=== PATIENT | male | born 1955 | race Caucasian/White ===

== ENCOUNTER 2017-05-01 15:32 | Observation (INO) | payer OTHER ==
[2017-05-01] VITALS (10 sets, daily range): BP systolic 103–165; BP diastolic 72–95; PULSE 63–85; RESP 18–20; TEMP 98.3–99.2; O2SAT 94–97
[~2017-05-01] VITALS: Ht 193 cm; Wt 104.0 kg
[~2017-05-01 15:32] MED LIST: ATOR10TA PO; CLOP75 PO; ECOT81TA2 PO; FLUO20TA20 PO; HCTZ25 PO; NIFE1TAB85 PO
[2017-05-01] MEDS ORDERED: FLUO20CA12 PO (15:49)
[2017-05-01] MEDS ORDERED: CLOP75TA PO (15:49)
[2017-05-01] MEDS ORDERED: ATOR10TA15 PO (15:49)
[2017-05-01] MEDS ORDERED: NIFE10CA PO (15:49)
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
[2017-05-01 15:59] LABS: AUTOMATED NEUTROPHIL # 4.1 TH/MM3 (1.8-7.7); BASOPHIL # 0.1 TH/MM3 (0-0.2); BASOPHIL % 0.8 % (0.0-2.0); EOSINOPHIL # 0.3 TH/MM3 (0-0.4); EOSINOPHIL % 4.3 % (0.0-4.0); HEMATOCRIT 48.3 % (39.0-51.0); HEMO FLAGS DIFF FINAL; LYMPHOCYTE # 2.1 TH/MM3 (1.0-4.8); MEAN CORPUSCULAR HEMOGLOBIN 30.3 PG (27.0-34.0); MEAN CORPUSCULAR HGB CONC 33.6 % (32.0-36.0); MONO % 10.3 % (0.0-8.0); NEUT % 56.6 % (16.0-70.0); PLATELET COUNT 224 TH/MM3 (150-450); RED BLOOD COUNT 5.37 MIL/MM3 (4.50-5.90); RED CELL DISTRIBUTION WIDTH 11.6 % (11.6-17.2); WHITE BLOOD COUNT 7.4 TH/MM3 (4.0-11.0)
[2017-05-01] MEDS ORDERED: NITROGLYCERIN 0.4 MG SL 25 TABS/BTL SL ONE (16:00)
[2017-05-01] MEDS ORDERED: SODIUM CHLORIDE 0.9% FLUSH 10 ML FLUSH IVF PRN (16:00)
[2017-05-01] MEDS ORDERED: ASPIRIN 81 MG CHEW TAB PO ONE (16:00)
[2017-05-01 16:09] LABS: CHLORIDE 105 MEQ/L (98-107); SODIUM (NA) 139 MEQ/L (136-145)
[2017-05-01 16:12] LABS: ANION GAP 8 MEQ/L (5-15); BICARBONATE 26.2 MEQ/L (21.0-32.0)
[2017-05-01 16:13] LABS: BLOOD UREA NITROGEN 17 MG/DL (7-18); MAGNESIUM 2.1 MG/DL (1.5-2.5)
[2017-05-01 16:15] LABS: ALT (GPT) 58 U/L (12-78); APTT (PATIENT) 26.3 SEC (24.3-30.1); AST (GOT) 50 U/L (15-37); PROTHROMBIN TIME - PATIENT 10.8 SEC (9.8-11.6)
[2017-05-01 16:16] LABS: GLOMERULAR FILTRATION RATE 68 ML/MIN (>89)
[2017-05-01 16:17] LABS: TOTAL BILIRUBIN ADULT 0.8 MG/DL (0.2-1.0)
[2017-05-01 16:18] LABS: ALKALINE PHOSPHATASE 117 U/L (45-117); CREATINE KINASE 191 U/L (39-308)
[2017-05-01] MEDS ORDERED: POTASSIUM CHLORIDE 20 MEQ CONTROLLED RELEASE TAB PO ONE (16:30)
[2017-05-01] MEDS ORDERED: LIDOCAINE VISCOUS 2% SOLN 15 ML UDC PO ONE (16:30)
[2017-05-01] MEDS ORDERED: ALUMINUM/MAGNESIUM/SIMETH 30 ML CUP PO ONE (16:30)
[2017-05-01 16:31] LABS: CKMB 1.7 NG/ML (0.5-3.6)
--- NOTE | 2017-05-01 16:39 | RADRPT ---
EXAM DATE/TIME: 05/01/2017 16:01 [facility] COMPARISON: No previous studies available for comparison. INDICATIONS : Chest pain and shortness of breath, with history of heart catheterization. MEDICAL HISTORY : None. SURGICAL HISTORY : cardiac cath ENCOUNTER: Initial ACUITY: 1 day PAIN SCORE: 10/10 LOCATION: Bilateral upper chest FINDINGS: Underinflated AP view of the chest demonstrates a normal-sized cardiac silhouette with tortuous desce nding thoracic aorta. No effusion, consolidation, or pneumothorax is visualized. The bones and soft t issues demonstrate no acute finding. CONCLUSION: No acute cardiopulmonary abnormality is identified. Nate Small MD on May 01, 2017 at 16:37 Board Certified Radiologist. This report was verified electronically.
[2017-05-01] MEDS ORDERED: IOHEXOL 350 MG/ML 10 ML VIAL (for RAD DIAG) IV ONE (16:49)
--- NOTE | 2017-05-01 17:08 | RADRPT ---
EXAM DATE/TIME: 05/01/2017 16:21 [facility] COMPARISON: No previous studies available for comparison. INDICATIONS : Chest pain. Epigastric pain with nausea, vomiting and diarrhea. Evaluate for aortic dissection. IV CONTRAST: 90 cc Omnipaque 350 (iohexol) IV RADIATION DOSE: 22.32 CTDIvol (mGy) MEDICAL HISTORY : Gastroesophageal reflux disease. Cerebrovascular disease. Myocardial infarction.Hypertension. Renal calculi. SURGICAL HISTORY : None. ENCOUNTER: Initial ACUITY: 4 - 6 days PAIN SCALE: 7/10 LOCATION: chest TECHNIQUE: Volumetric scanning was performed using a multi-row detector CT scanner. The data was post processed with a variety of visualization algorithms including full volume maximum intensity projection, multi -planar sliding thin slab reformation, curved planar reformation, and surface rendering techniques. Using automated exposure control and adjustment of the mA and/or kV according to patient size, radiat ion dose was kept as low as reasonably achievable to obtain optimal diagnostic quality images. DICOM format image data is available electronically for review and comparison. FINDINGS: LUNGS: Minimal bibasilar groundglass opacities likely reflect atelectasis. MEDIASTINUM: No abnormally enlarged lymph nodes by CT criteria. No axillary or hilar abnormalities are identified. Heart appears unremarkable without significant pericardial effusion. ABDOMEN: Small subcentimeter hypodense lesions near the dome of the liver are too small to fully characterize. 2.9 x 3.0 cm cyst in inferior right lobe of the liver. Spleen is unremarkable. The gallbladder and p ancreas demonstrate no abnormality. The adrenal glands are normal. There is a small subcentimeter cys tic lesion in the medial mid right kidney which is too small to fully characterize. Kidneys are other castro unremarkable. No free fluid or abdominal masses are identified. No para-aortic adenopathy is see n. PELVIS: No evidence of free fluid or pelvic mass. No abnormally enlarged inguinal or retroperitoneal lymph no justin are present. The bladder is unremarkable. THORACIC AORTA: Mild ectasia of the descending thoracic aorta measuring up to 3.9 cm. Arch is normal in caliber with stent a 3 vessel arch anatomy. Proximal arch vessels are patent. Descending thoracic aorta is normal in caliber. No evidence for thoracic aortic dissection. ABDOMINAL AORTA: Mild ectasia of the distal abdominal aorta just above the aortic bifurcation. Infrarenal aorta measur es 1.9 cm with the relative ectatic segment measuring 2.3 cm. No evidence of aortic dissection. The r enal arteries are patent bilaterally. The proximal celiac and superior mesenteric arteries are paten t and normal in diameter. PELVIC VESSELS: The internal iliac and external iliac vessels are patent without aneurysm or stenosis. CONCLUSION: 1. No evidence for aortic dissection as questioned. Mild ectasia of the ascending thoracic aorta toi uring up to 3.9 cm and mild relative ectasia of the distal bowel aorta near the bifurcation measuring up to 2.3 cm. 2. No definitive findings to explain patient's epigastric abdominal pain. 3. Ancillary findings include 3 cm cyst in the inferior right lobe of the liver with additional subce ntimeter hypodense lesions in the dome of the liver and right kidney that are too small to fully lani acterize. Scott Godwin MD on May 01, 2017 at 16:55 Board Certified Radiologist. This report was verified electronically.
[2017-05-01] MEDS ORDERED: SODIUM CHLORIDE 0.9% FLUSH 10 ML FLUSH IV FLUSH PRN (17:30)
[2017-05-01] MEDS ORDERED: ACETAMINOPHEN 500 MG CPLT PO PRN (18:00)
[2017-05-01] MEDS ORDERED: ONDANSETRON HCL 4 MG/2 ML VIAL IV PRN (18:00)
[2017-05-01] MEDS ORDERED: NITROGLYCERIN 0.4 MG SL 25 TABS/BTL SL PRN (18:00)
[2017-05-01] MEDS ORDERED: MORPHINE SULFATE 4 MG/ML INJ IV PRN (18:00)
[2017-05-01] MEDS ORDERED: ENOXAPARIN SODIUM 40 MG/0.4 ML SYRINGE SQ SCH (18:00)
[2017-05-01 18:43] LABS: CREATINE KINASE 163 U/L (39-308)
--- NOTE | 2017-05-01 18:47 | HHI.HP ---
[facility] Primary Care Physician Maxim Hayes MD Admission Diagnosis chest pain, hypokalemia Diagnoses: (1) Chest pain Diagnosis: Principal (2) Hypokalemia Diagnosis: Principal Chief Complaint: Chest pain Travel History International Travel<30 Days: No Contact w/Intl Traveler <30 Da: No Traveled to Known Affected Are: No History of Present Illness Written by Coy Anthony, acting as scribe for Dr. Jose on 05/01/17 at 18: 38. 61 year-old male with known history of hypertension, hyperlipidemia, history TIA, history of CVA, history myocardial infarction, history of sleep apnea, history of gastroesophageal reflux who presented to the hospital because of chest discomfort. Patient states that he had a stomach flu at the beginning this week with 3 days of nausea, vomiting, diarrhea. Patient states that he improved on Friday of this week. He has had increased acid reflux and heartburn since then. Today he developed nausea with burning sensation in his abdomen that moved up into his chest where he described as a crushing sensation in the middle part of his chest without any radiation to his neck, back, shoulder, arm. He did have nausea without any vomiting. Had an episode of diaphoresis. Had associated dizziness. Denied any shortness of breath or dyspnea. Patient does have previous history of myocardial infarction, however he states that this is not the same type of pain he experienced then. He did come to the hospital because he was worried that he was having cardiac problems. Patient had workup done emergency department and had negative workup thus far. Is recommended by ER physician that the patient be observed in the chest pain center for further recommendations. Review of Systems Constitutional: COMPLAINS OF: Diaphoretic episodes, Dizziness Cardiovascular: COMPLAINS OF: Chest pain Gastrointestinal: COMPLAINS OF: Abdominal pain, Nausea Except as stated in HPI: all other systems reviewed are Neg Past Family Social History Past Medical History Hypertension Hyperlipidemia History myocardial infarction at age 29 History of CVA with residual to include some cognitive recall, speech abnormalities History of sleep apnea Gastroesophageal reflux Past Surgical History Sinus surgery Tonsillectomy Reported Medications Reported Meds & Active Scripts Active Reported Nifedipine 10 Mg Cap 10 Mg PO DAILY Atorvastatin (Atorvastatin Calcium) 10 Mg Tab 10 Mg PO HS Clopidogrel (Clopidogrel Bisulfate) 75 Mg Tab 75 Mg PO DAILY Fluoxetine (Fluoxetine HCl) 20 Mg Capsule 20 Mg PO HS Allergies: Coded Allergies: Erythromycins (Unverified Allergy, Severe, HIVES, STOMACH DISTRESS, ) Family History Reviewed is significant for father from brain tumor. Social History Patient states that he quit smoking at age 13 when his father caught him and he got in trouble. Denies any alcohol or illicit drugs Physical Exam Vital Signs Vital Signs Date Time Temp Pulse Resp B/P Pulse Ox O2 Delivery O2 Flow Rate FiO2 05/01/17 18:17 71 18 150/95 96 Room Air 05/01/17 16:58 78 18 140/83 96 Room Air 05/01/17 15:59 85 103/72 119/82 05/01/17 15:57 96 Room Air 05/01/17 15:57 96 Room Air 05/01/17 15:41 82 97 Room Air 05/01/17 15:35 98.3 82 18 165/92 97 Physical Exam GENERAL: Well-developed, well-nourished, in no acute distress. alert and orientated HEENT: Head is normocephalic without any lesions or masses noted. Facial features are symmetric. Eyes: Pupils equal round reactive to light. Extraocular muscles are intact. Conjunctivae were clear. Oropharyngeal: Pharynx without any erythema edema. Tongue is midline without deviation. Buccal mucosa is moist without any masses or lesions NECK: Trachea midline no deviation. CARDIAC: Regular rhythm, regular rate. No murmurs gallops LUNGS: Clear to auscultation bilaterally. No wheeze, rhonchi or rales. No use of accessory muscles on inspiration or expiration. ABDOMEN: Soft, nontender. Nondistended. Bowel sounds heard in all 4 quadrants. No organomegaly or masses. Negative rebound, negative guarding EXTREMITIES: No edema, pulses are equal bilaterally. No cyanosis or clubbing NEUROLOGY: Mood and affect appear appropriate. Cranial nerves II through XII grossly intact. Muscle strength 5/5 in upper and lower extremities bilaterally. Deep tendon reflexes are 2+ in upper and lower extremities bilaterally. Laboratory Laboratory Tests Test 05/01/17 15:30 White Blood Count 7.4 Red Blood Count 5.37 Hemoglobin 16.3 Hematocrit 48.3 Mean Corpuscular Volume 90.0 Mean Corpuscular Hemoglobin 30.3 Mean Corpuscular Hemoglobin 33.6 Concent Red Cell Distribution Width 11.6 Platelet Count 224 Mean Platelet Volume 9.7 Neutrophils (%) (Auto) 56.6 Lymphocytes (%) (Auto) 28.0 Monocytes (%) (Auto) 10.3 Eosinophils (%) (Auto) 4.3 Basophils (%) (Auto) 0.8 Neutrophils # (Auto) 4.1 Lymphocytes # (Auto) 2.1 Monocytes # (Auto) 0.8 Eosinophils # (Auto) 0.3 Basophils # (Auto) 0.1 CBC Comment DIFF FINAL Differential Comment Prothrombin Time 10.8 Prothromb Time International 1.0 Ratio Activated Partial 26.3 Thromboplast Time Sodium Level 139 Potassium Level 3.0 Chloride Level 105 Carbon Dioxide Level 26.2 Anion Gap 8 Blood Urea Nitrogen 17 Creatinine 1.10 Estimat Glomerular Filtration 68 Rate Random Glucose 97 Calcium Level 8.8 Magnesium Level 2.1 Total Bilirubin 0.8 Aspartate Amino Transf 50 (AST/SGOT) Alanine Aminotransferase 58 (ALT/SGPT) Alkaline Phosphatase 117 Total Creatine Kinase 191 Creatine Kinase MB 1.7 Troponin I LESS THAN 0.02 Total Protein 8.2 Albumin 4.0 Lipase 147 Result Diagram: 05/01/17 1530 05/01/17 1530 Imaging Last Impressions Chest X-Ray 05/01/17 1548 Signed Impressions: Service Date/Time: April 16:01 - CONCLUSION: No acute cardiopulmonary abnormality is identified. Nate Small MD Aorta CTA 05/01/17 1548 Signed Impressions: Service Date/Time: April 16:21 - CONCLUSION: 1. No evidence for aortic dissection as questioned. Mild ectasia of the ascending thoracic aorta measuring up to 3.9 cm and mild relative ectasia of the distal bowel aorta near the bifurcation measuring up to 2.3 cm. 2. No definitive findings to explain patient's epigastric abdominal pain. 3. Ancillary findings include 3 cm cyst in the inferior right lobe of the liver with additional subcentimeter hypodense lesions in the dome of the liver and right kidney that are too small to fully characterize. Scott Godwin MD Assessment and Plan Assessment and Plan Chest pain, atypical Patient with increased risk factors to include age, hypertension, hyperlipidemia, history of myocardial infarction Will r/o patient out for acute coronary event with serial cardiac enzymes and serial EKGs Will pursue exercise stress test in the morning to rule out any underlying ischemia Continue aspirin, statin, nitroglycerin as needed, morphine for pain Hypertension, hyperlipidemia, coronary artery disease Continue nifedipine 10 mg daily Check lipid panel History CVA with minimal residuals Continue Plavix History of gastroesophageal reflux with increased heartburn Start Protonix DVT prevention Subcutaneous Lovenox This note was transcribed by liudmila Anthony. I, Dr. Zulma Jose personally performed the history, physical exam, and medical decision making; and confirmed the accuracy of the information in the transcribed note. Authenticated by Dr. Zulma Jose on 05/01/17 at 18:38. Code Status Full code Discussed Condition With ER physician, patient Problem Qualifiers (1) Chest pain: Qualified Code: R07.9 - Chest pain, unspecified type Coy Anthony May 01, 2017 18:47 Zulma Jose MD May 02, 2017 09:04
[2017-05-01 18:55] LABS: CKMB 1.4 NG/ML (0.5-3.6)
[2017-05-01] MEDS: SODIUM CHLORIDE 0.9% FLUSH 10 ML FLUSH IV FLUSH SCH (21:00)
[2017-05-01 21:35] LABS: CREATINE KINASE 154 U/L (39-308)
[2017-05-01 21:48] LABS: CKMB 1.3 NG/ML (0.5-3.6)
[2017-05-02] VITALS: BP 120/88; PULSE 62; RESP 18; TEMP 98.6; O2SAT 94
[2017-05-02 04:00] VITALS: BP 135/87; PULSE 58; RESP 20; TEMP 98.4; O2SAT 94
[2017-05-02 06:57] LABS: POTASSIUM 3.5 MEQ/L (3.5-5.1)
[2017-05-02] MEDS: SODIUM CHLORIDE 0.9% FLUSH 10 ML FLUSH IV FLUSH SCH (08:06)
[2017-05-02 08:55] VITALS: BP 139/93; PULSE 62; RESP 19; TEMP 97.6; O2SAT 95
[2017-05-02] MEDS ORDERED: ASPIRIN 325 MG TAB PO SCH (09:00)
[2017-05-02] MEDS ORDERED: PANTOPRAZOLE SOD 40 MG DELAYED RELEASE TAB PO SCH (09:00)
[2017-05-02 09:08] LABS: HDL CHOLESTEROL 34.9 MG/DL (40.0-60.0)
--- NOTE | 2017-05-02 09:27 | HHI.PR ---
Subjective Remarks Written by Coy Anthony, acting as scribe for Dr. Jose on 05/02/17 at 09: 24. Patient denies any recurrent chest pain. He is doing well today. about to do exercise stress test today Objective Vitals Vital Signs Date Time Temp Pulse Resp B/P Pulse Ox O2 Delivery O2 Flow Rate FiO2 05/02/17 08:55 97.6 62 19 139/93 95 05/02/17 04:00 98.4 58 20 135/87 94 05/02/17 00:00 98.6 62 18 120/88 94 05/01/17 23:35 95 21 05/01/17 21:30 99.2 63 18 143/95 94 05/01/17 21:29 72 20 143/87 98 05/01/17 20:42 72 20 135/91 97 05/01/17 19:05 77 20 97 05/01/17 19:00 74 20 139/79 97 05/01/17 18:17 71 18 150/95 96 Room Air 05/01/17 16:58 78 18 140/83 96 Room Air 05/01/17 15:59 85 103/72 119/82 05/01/17 15:57 96 Room Air 05/01/17 15:57 96 Room Air 05/01/17 15:41 82 97 Room Air 05/01/17 15:35 98.3 82 18 165/92 97 I/O 05/01/17 05/01/17 05/01/17 05/02/17 05/02/17 05/02/17 07:00 15:00 23:00 07:00 15:00 23:00 Intake Total 240 ml Balance 240 ml Intake Oral 240 ml # Voids 2 3 # Bowel Movements 0 Result Diagram: 05/01/17 1530 05/02/17 0517 Imaging Last Impressions Chest X-Ray 05/01/17 1548 Signed Impressions: Service Date/Time: April 16:01 - CONCLUSION: No acute cardiopulmonary abnormality is identified. Nate Small MD Aorta CTA 05/01/17 1548 Signed Impressions: Service Date/Time: April 16:21 - CONCLUSION: 1. No evidence for aortic dissection as questioned. Mild ectasia of the ascending thoracic aorta measuring up to 3.9 cm and mild relative ectasia of the distal bowel aorta near the bifurcation measuring up to 2.3 cm. 2. No definitive findings to explain patient's epigastric abdominal pain. 3. Ancillary findings include 3 cm cyst in the inferior right lobe of the liver with additional subcentimeter hypodense lesions in the dome of the liver and right kidney that are too small to fully characterize. Scott Godwin MD Objective Remarks GENERAL: Well-developed, well-nourished, alert and orientated HEENT: Head is normocephalic. Facial features are symmetric. Eyes: Extraocular muscles are intact. Conjunctivae were clear. NECK: Trachea midline no deviation. No JVD CARDIAC: Regular rhythm, regular rate. No murmurs gallops or rubs. LUNGS: Clear to auscultation bilaterally. No wheeze ABDOMEN: Soft, nontender. Nondistended. Bowel sounds heard in all 4 quadrants. No organomegaly or masses. Negative rebound, negative guarding EXTREMITIES: No edema, pulses are equal bilaterally. NEUROLOGY: Mood and affect appear appropriate. Cranial nerves II through XII grossly intact. Moving all extremities, speech is clear Urinary Catheter: No Vascular Central Line Catheter: No A/P Assessment and Plan Chest pain, atypical Patient with increased risk factors to include age, hypertension, hyperlipidemia, history of myocardial infarction Patient has been ruled out for acute coronary event with serial cardiac enzymes are negative, serial EKGs reviewed Exercise stress test was performed which did not indicate any ischemia Continue aspirin, statin, nitroglycerin as needed, morphine for pain Hypertension, hyperlipidemia, coronary artery disease Continue nifedipine 10 mg daily LDL 55 History CVA with minimal residuals Continue Plavix History of gastroesophageal reflux with increased heartburn Continue Protonix DVT prevention Subcutaneous Lovenox This note was transcribed by liudmila Anthony. I, Dr. Zulma Jose personally performed the history, physical exam, and medical decision making; and confirmed the accuracy of the information in the transcribed note. Authenticated by Dr. Zulma Jose on 05/02/17 at 09:24. Discharge Planning Discharge home in stable condition Activity: Ad violeta. Diet: Healthy heart diet Medications per medication reconciliation Follow-up primary medical doctor one week Coy Anthony May 02, 2017 09:26 Zulma Jose MD May 02, 2017 16:22
[2017-05-02] MEDS ORDERED: PANT40TA3 PO (09:28)
--- NOTE | 2017-05-02 09:33 | HHI.DCPOC ---
Discharge Care Plan Diagnosis: (1) Chest pain Goals to Promote Your Health * To prevent worsening of your condition and complications * To maintain your health at the optimal level Directions to Meet Your Goals Take your medications as prescribed Follow your dietary instruction Follow activity as directed Keep your appointments as scheduled Take your immunizations and boosters as scheduled If your symptoms worsen call your PCP, if no PCP go to Urgent Care Center or Emergency Room Smoking is Dangerous to Your Health. Avoid second hand smoke Call the 24-hour hour crisis hotline for domestic abuse at [facility] May 02, 2017 09:33
--- NOTE | 2017-05-02 14:04 | EKG ---
Date Performed: 05/01/2017 Time Performed: 21:14:53 PTAGE: 61 years EKG: Sinus rhythm NORMAL ECG Since PREVIOUS TRACING , no significant change noted PREVIOUS TRACIN05/01/2017 18.36 DOCTOR: Jenni Suh Interpretating Date/Time 05/02/2017 14:01:56
--- NOTE | 2017-05-02 14:04 | EKG ---
Date Performed: 05/01/2017 Time Performed: 18:36:41 PTAGE: 61 years EKG: Sinus rhythm NONSPECIFIC T-WAVE ABNORMALITY BORDERLINE ECG Since PREVIOUS TRACING , no significant change noted PREVIOUS TRACIN05/01/2017 15.40 DOCTOR: Jenni Suh Interpretating Date/Time 05/02/2017 14:03:04
--- NOTE | 2017-05-02 14:06 | EKG ---
Date Performed: 05/01/2017 Time Performed: 15:40:02 PTAGE: 61 years EKG: Sinus rhythm NONSPECIFIC T-WAVE ABNORMALITY BORDERLINE ECG Since PREVIOUS TRACING , no significant change noted PREVIOUS TRACIN11/16/2014 20.48 DOCTOR: Jenni Suh Interpretating Date/Time 05/02/2017 14:04:11
--- NOTE | 2017-05-05 07:28 | TR ---
Date Performed: 05/02/2017 Time Performed: 09:03:59 DOCTOR: Jenni Suh DRUG LIST: CLINICAL HISTORY: CHEST PAIN REASON FOR TEST: Chest pain REASON FOR ENDING: Completed Protocol OBSERVATION: Chest Pain: None Arrhythmia: None CONCLUSION: Patient tolerated NALINI protocol withTotal Exercise Time=10:20 Maximum VV=996 % Max HR Achieved=86.0% Maximum IP=218/82, patient asymptomatic during entire exam. Testing stopped seconda ry to goals acheived, Patient reached target HR. During peak exercise, patient was without any arryth clarice, quick upsloping ST segments, HR and BP appropriate response to exercise.Recovery period, HR and BP returned to baseline COMMENTS:
== END 2017-05-02 10:31 | disposition home or self-care (01) ==
LOC: PHED 15:32 → PHEDA 17:25 → PH3A 21:28
PROVIDERS: ADMIT Hospitalist; ATTEND Hospitalist
DX: R07.89 Other chest pain (principal); I10 Essential (primary) hypertension; I25.2 Old myocardial infarction; J45.909 Unspecified asthma, uncomplicated; K21.9 Gastro-esophageal reflux disease without esophagitis; Z86.73 Personal history of transient ischemic attack (TIA), and cerebral infarction without residual deficits; I25.10 Atherosclerotic heart disease of native coronary artery without angina pectoris; F41.9 Anxiety disorder, unspecified; F32.9 Major depressive disorder, single episode, unspecified; E78.00 Pure hypercholesterolemia, unspecified; G47.30 Sleep apnea, unspecified; E87.6 Hypokalemia; E78.5 Hyperlipidemia, unspecified; Z87.891 Personal history of nicotine dependence; Z79.899 Other long term (current) drug therapy
CPT/HCPCS: 71010; 71275; 74174; 80048; 80053; 80061; 82550; 82552; 83690; 83735; 84484; 85025; 85610; 85730; 93005; 93017; 96372; 99285; G0378; J1650; Q9967